=== PATIENT | male | born 1960 | race Two or more races ===

== ENCOUNTER 2017-05-04 09:32 | Day surgery (SDC) | payer BC ==
[2017-05-04] VITALS (10 sets, daily range): BP systolic 97–130; BP diastolic 62–82
[~2017-05-04] VITALS: Ht 172.7 cm; Wt 74.8 kg
--- NOTE | 2017-05-04 07:21 | Pre-Procedure Note/Attestation ---
Pre-Procedure Note/Attestation Complete Prior to Procedure Planned Procedure: right - Removal of cataract and placement of intraocular lens, right eye Procedure Narrative: Removal of cataract and placement of intraocular lens, right eye Indications for Procedure Pre-Operative Diagnosis: Cataract, nuclear, right eye Attestation I attest that I discussed the nature of the procedure; its benefits; risks and complications; and alternatives (and the risks and benefits of such alternatives ), prior to the procedure, with the patient (or the patient's legal lead generation representative). I attest that, if there was a reasonable possibility of needing a blood transfusion, the patient (or the patient's legal lead generation representative) was given the [place] [employer] [facility] [employer] [facility] standardized written summary, pursuant to the Rick Yana Blood Safety Act ([place] Health and Safety Code # 1645, as amended). I attest that I re-evaluated the patient just prior to the surgery and that there has been no change in the patient's H&P, except as documented below: Bakari Polo MD May 04, 2017 07:21
[~2017-05-04 09:32] MED LIST: Pred Forte 1% Opth Susp 1ml RIGHT EYE ONE
[2017-05-04] MEDS ORDERED: Phenylephrine 10% Opth Soln 5ml ONE (09:35)
[2017-05-04] MEDS ORDERED: Akten 3.5% 1ml Btl ONE (09:36)
[2017-05-04] MEDS ORDERED: Flurbiprofen 0.03% Opth Sol 2.5ml ONE (09:36)
[2017-05-04] MEDS ORDERED: Cyclopentolate 1% Opth Sol ONE (09:36)
[2017-05-04] MEDS ORDERED: Pred Forte 1% Opth Susp 1ml ONE (09:36)
[2017-05-04] MEDS: Phenylephrine 10% Opth Soln 5ml RIGHT EYE SCH ×3 (09:50→10:24)
[2017-05-04] MEDS: Akten 3.5% 1ml Btl RIGHT EYE SCH ×3 (09:50→10:23)
[2017-05-04] MEDS: Cyclopentolate 1% Opth Sol RIGHT EYE SCH ×3 (09:50→10:23)
[2017-05-04] MEDS: Flurbiprofen 0.03% Opth Sol 2.5ml RIGHT EYE SCH ×3 (09:51→10:24)
[2017-05-04] MEDS: Vigamox Opth Soln RIGHT EYE SCH ×3 (09:51→10:24)
[2017-05-04] MEDS ORDERED: CRESTOR10 M2 ORAL (10:04)
[2017-05-04] MEDS ORDERED: IBUPROFEN600 MG ORAL (10:04)
[2017-05-04] MEDS ORDERED: Sodium Hyaluronate 10 mg/ml 0.85ml ONE (12:13)
[2017-05-04] MEDS ORDERED: BSS 15ml BTL ONE ×2 (12:13→13:57)
[2017-05-04] MEDS ORDERED: BSS 500ml btl ONE ×2 (12:13→13:56)
[2017-05-04] MEDS ORDERED: Midazolam 2mg/2ml Inj ONE (12:30)
[2017-05-04] MEDS ORDERED: NS Irrig 1000ml ONE (12:30)
[2017-05-04] MEDS ORDERED: LR 1000ml ONE (12:30)
[2017-05-04] MEDS ORDERED: Metoclopramide 10mg/2ml Inj ONE (12:30)
[2017-05-04] MEDS ORDERED: fentaNYL 100 mcg/2 mL IV ONE (12:30)
[2017-05-04] MEDS ORDERED: Sterile Water Irrig 1000ml IRRIG ONE (12:30)
[2017-05-04] MEDS ORDERED: Propofol 10mg/ml 20ml IV ONE (12:45)
[2017-05-04] MEDS ORDERED: Lidocaine 1% MPF 10mg/ml 5ml ONE ×2 (12:49→13:56)
[2017-05-04] MEDS ORDERED: Bupivacaine 0.75% 30ml vial INJ ONE (12:50)
[2017-05-04] MEDS ORDERED: Povidone-Iodine 5% opth solution ONE (12:53)
--- NOTE | 2017-05-04 13:05 | Anethesia Preoperative Eval ---
Anesthesia Pre-op PMH/ROS General Date of Evaluation: May 04, 2017 Time of Evaluation: 12:20 Anesthesiologist: scott ASA Score: ASA 2 Mallampati Score Class I : Soft palate, uvula, fauces, pillars visible Class II: Soft palate, uvula, fauces visible Class III: Soft palate, base of uvula visible Class IV: Only hard plate visible Mallampati Classification: Class II Surgeon: jesus Diagnosis: cataract Surgical Procedure: removal of cataract plus placement of IOL right eye Anesthesia History: none Social History: smoking Family History: no anesthesia problems Allergies: Coded Allergies: No Known Allergies (Unverified , 05/04/17) Medications: see eMAR Past Medical History Cardiovascular: Reports: CAD - hypercholesterol Pulmonary: Reports: other - smoker Gastrointestinal/Genitourinary: Denies: CRI, ESRD, GERD, other Neurologic/Psychiatric: Denies: CVA, TIA, dementia, depression/anxiety, other Endocrine: Denies: DM, hypothyroidism, other, steroids HEENT: Reports: cataract (R) Hematology/Immune: Denies: DVT, anemia, bleeding disorder, other Musculoskeletal/Integumentary: Reports: OA, other - back pain Anesthesia Pre-op Phys. Exam Physician Exam Last Vital Signs Date Time Temp Pulse Resp B/P Pulse Ox O2 Delivery O2 Flow Rate FiO2 05/04/17 10:05 98.5 92 20 130/75 96 Room Air Constitutional: NAD Neurologic: CN 2-12 intact Cardiovascular: RRR Respiratory: CTA Gastrointestinal: S/NT/ND Airway Exam Mallampati Score: Class II MO: full ROM: full Teeth: intact Dentures: no lower, no upper Anesthesia Pre-op A/P Studies Pre-op Studies: EKG - sinus arrhythmia Risk Assessment & Plan Plan: MAC if patient unable to tolerate do GENERAL LMA Status Change Before Surgery: No Pre-Antibiotics Given Within 1 Hr of Incision: No Michelle Stewart CRNA May 04, 2017 13:05
--- NOTE | 2017-05-04 13:36 | Discharge Instructions ---
Discharge Instructions Discharge Instructions Follow Up Orders Continue preop eye drops Wear shield at all times Followup tomorrow in Dr Polo's office Return to Work/School on: May 04, 2017 For Congestive Heart Failure Reminder Report to your physician any weight gain of 5 pounds or more in one week. Bakari Polo MD May 04, 2017 13:36
--- NOTE | 2017-05-04 13:39 | Brief Operative Note ---
Immediate Post Operative Note Operative Note Pre-op Diagnosis: Cataract, nuclear, posterior subcapsular, right eye Procedure: Phaco pc iol, OD Post-op Diagnosis: same as pre-op Surgeon: Earline Polo MD Anesthesiologist: tata Stewart and Rima payton Anesthesia: general Specimen: none Complications: none Estimated Blood Loss: minimal Implant(s) used?: Yes - sher [id number] 22.5 Bakari Polo MD May 04, 2017 13:39
--- NOTE | 2017-05-04 13:42 | Immediate Post-Op Evaluation ---
Immediate Post-Op Evalulation Immediate Post-Op Evalulation Date of Evaluation: May 04, 2017 Time of Evaluation: 13:34 IV Fluids: 700 Blood Pressure Systolic: 96 Blood Pressure Diastolic: 62 Pulse Rate: 88 Respiratory Rate: 22 O2 Sat by Pulse Oximetry: 100 Temperature (Fahrenheit): 97 Pain Score (1-10): 0 Nausea: No Vomiting: No Patient Status: reacts Hydration Status: adequate Given Within 1 Hr of Incision: No Michelle Stewart CRNA May 04, 2017 13:42
--- NOTE | 2017-05-04 13:43 | 48 Hour Post Anesthesia Eval ---
Post Anesthesia Evaluation Date of Evaluation: May 04, 2017 Time of Evaluation: 13:50 Blood Pressure Systolic: 101 0: 62 Pulse Rate: 87 Respiratory Rate: 23 Temperature (Fahrenheit): 97.2 O2 Sat by Pulse Oximetry: 100 Airway: patent Nausea: No Vomiting: No Pain Intensity: 0 Hydration Status: adequate Mental Status/LOC: patient returned to baseline Follow-up care needed: patient intructions given Michelle Stewart CRNA May 04, 2017 13:43
[2017-05-04] MEDS ORDERED: EPINEPHrine 1mg/1ml Amp ONE (13:56)
[2017-05-04] MEDS ORDERED: Dexamethasone 4mg/ml vial ONE (13:56)
[2017-05-04] MEDS ORDERED: Tetracaine 0.5% Opth Soln ONE (13:56)
[2017-05-04] MEDS ORDERED: Lidocaine 4% Amp ONE (13:56)
--- NOTE | 2017-05-05 01:00 | Operative Note - Dictated ---
DATE OF OPERATION: 05/04/2017 SURGEON: Bakari Polo M.D. PULP ROLLER SURGEON: None. ANESTHESIOLOGIST: 1. , RECREATION THERAPY AIDE. 2. Rima Sylvester CRNA. ANESTHESIA: Local/MAC converted to LMA. PREOPERATIVE DIAGNOSIS: Cataract, nuclear, posterior subcapsular, right eye. POSTOPERATIVE DIAGNOSIS: Cataract, nuclear, posterior subcapsular, right eye. PROCEDURE: 1. Phacoemulsification of cataract, right eye. 2. Placement of posterior chamber intraocular lens, right eye (model Ch [id number], power 22.5). SPECIMENS: None. COMPLICATIONS: None. INDICATIONS FOR SURGERY: The patient has had the painless progressive decrease in visual acuity in the right eye, secondary to cataract. His best corrected visual acuity in the right eye was 20/80 and marked clear and especially decreased night vision. The patient understands the risks of surgery including infection, bleeding, need for further surgery, loss of vision, no improvement in vision, loss of the eye, loss of life, glaucoma, retinal detachment, understands these risks and elects to proceed with surgery. FINDINGS: The patient had a dense central +3 to 4 posterior subcapsular cataract. Note, the patient was brought into the operating room and draped and prepped and a time-out was performed and all criteria were met, but the patient kept talking during the procedure and they gave as much local anesthesia as possible, but he just kept talking and moving and it was elected to convert to general anesthesia with LMA. Operative Note: After informed consent was obtained, the patient was brought into the operating room, placed in the supine position. Cardiac and respiratory monitors were attached. A time-out was performed and all criteria were met and everyone in the room agreed. The right eye was then draped and prepped in a sterile manner for ocular surgery. A lid speculum was placed in the eye. The patient continued to talk and move and they tried to sedate him, but he became sedated so much that there is difficulty maintaining his airway and then was converted to an LMA. After the LMA was placed, the right eye was again draped and prepped in sterile manner for ocular surgery. A lid speculum was placed in the eye. A 1% lidocaine preservative-free was injected at the 9 o'clock limbus. A conjunctiva peritomy from approximately 9 o'clock to 9:30 was made and dissected posteriorly. Hemostasis was maintained with bipolar cautery. A 2.6 mm limbal incision was made centered approximately 9:30 and dissected anteriorly. A paracentesis was made at approximately 12 o'clock and Shugarcaine was injected into the anterior chamber followed by Healon. The anterior chamber was then entered using a 2.6 mm keratome through the limbal incision. An anterior capsulorrhexis was then performed. Hydrodissection and hydrodelineation of the lens was then performed. The lens was then phacoemulsified using divide and conquer four-quadrant technique. Residual cortical material was then aspirated. As much of the posterior subcapsular cataract was also removed. Healon was injected into the anterior chamber and capsular bag. The lens was taken from its package, placed into the cartridge, and the tip of the cartridge was placed through the limbal incision. The lens was injected into the capsular bag and centered nicely with a Sinskey hook. The lens haptics and optics were noted to definitely be in the bag. The haptics and optics were aligned in the 180 degree meridian. Healon was aspirated from the anterior chamber and capsular bag. One 10-0 nylon interrupted suture was placed through the limbal incision. The knot was rotated and buried. Care was taken during the entire procedure not to touch the endothelium. The wound was checked and found to be watertight. The conjunctiva was closed with forceps cautery. The paracentesis was hydrated and closed. One drop of diluted Betadine was placed on the ocular surface and then irrigated away. The lid speculum and drapes were removed from the eye and drops of Pred Forte and Vigamox were applied to the eye followed by Maxitrol ointment and then a shield. The patient tolerated the procedure well and was extubated in the operating room and left the operating room in awake, alert, and in stable condition. Follow up the next day, but sooner on a p.r.n. basis. Bakari Polo M.D. DR: HEMAL JOB#: [id number] CC:
== END 2017-05-04 15:45 | disposition home or self-care (01) ==
LOC: SUR 09:32
DX: H25.11 Age-related nuclear cataract, right eye (principal); H25.041 Posterior subcapsular polar age-related cataract, right eye; I25.10 Atherosclerotic heart disease of native coronary artery without angina pectoris; M19.90 Unspecified osteoarthritis, unspecified site; E78.5 Hyperlipidemia, unspecified; F17.210 Nicotine dependence, cigarettes, uncomplicated; M54.9 Dorsalgia, unspecified; Z79.899 Other long term (current) drug therapy
CPT/HCPCS: 66984; J0171; J1100; J2250; J2405; J2704; J2765; J3010; J3490; J7120; V2632; 94003; 94150